=== PATIENT | male | born 1950 | race Caucasian/White ===

== ENCOUNTER 2022-01-30 07:22 | Day surgery (SDC) | payer OTHER ==
[~2022-01-30] VITALS: Ht 172.7 cm; Wt 78.4 kg
[~2022-01-30 07:22] MED LIST: AIRDUO RESPICL1 EAC1; ASPI81CH PO; GLIP10 PO; JARDIANCE10 MG PO; LEVSOD25 PO; LISI20 PO; OMEP20ER PO; PRAV20 PO; Ventolin5 MG/1 ML NEB
[2022-01-30] MEDS ORDERED: LIDO700A20 TOP (08:26)
--- NOTE | 2022-01-30 09:02 | NUR ---
History, Chart, Medications and Allergies reviewed before start of procedure.Lungs clear T/O to Auscultation. Patient confirms NPO status and agrees with scheduled surgery. Pre-Op teaching done. Pt verbalizes understanding. Patient States Post-Procedure ride home has been arranged. AT BEDSIDE
--- NOTE | 2022-01-30 09:05 | NUR ---
1 FAILED ATTEMPT BY CRYSTAL Ellis HAND
--- NOTE | 2022-01-30 11:15 | NUR ---
ARRIVED FROM PACU TO STEP VSS RATES PAIN 2/10.
--- NOTE | 2022-01-30 11:43 | NUR ---
PAIN RX FIRST DOSE WAS GIVEN AND PATIENT WAITING AT THIS TIME FOR SECOND PILL BEFORE DECIDING TO GET DRESSED AND READY FOR DISCHARGE
--- NOTE | 2022-01-30 11:58 | NUR ---
Patient up to Ambulate independently. Gait steady. Discharge instructions reviewed with patient. Patient verbalizes understanding. Copy given to patient to take home. Discharged via wheelchair to private car for ride home.
== END 2022-01-30 23:18 | disposition home or self-care (01) ==
LOC: ORSCMMR 07:22 → ORD 09:00 → ORSCMMR 09:00
PROVIDERS: Surgery
PROC: 0YU60JZ Supplement Left Inguinal Region with Synthetic Substitute, Open Approach (ICD-10-PCS; principal; 2022-01-30 09:00)
DX: K40.90 Unilateral inguinal hernia, without obstruction or gangrene, not specified as recurrent (principal); I10 Essential (primary) hypertension; J44.9 Chronic obstructive pulmonary disease, unspecified; Z87.891 Personal history of nicotine dependence; K21.9 Gastro-esophageal reflux disease without esophagitis; E11.9 Type 2 diabetes mellitus without complications; E78.5 Hyperlipidemia, unspecified; E03.9 Hypothyroidism, unspecified; Z79.899 Other long term (current) drug therapy; Z79.84 Long term (current) use of oral hypoglycemic drugs
CPT/HCPCS: 82947; A9270; C1781; J0690; J1100; J2250; J2370; J2405; J2704; J3010; J7120

== ENCOUNTER 2023-12-31 07:34 | Day surgery (SDC) | payer OTHER ==
[~2023-12-31] VITALS: Ht 172.7 cm; Wt 76.3 kg
[~2023-12-31 07:34] MED LIST changes: -AIRDUO RESPICL1 EAC1; +Balanced Salt Epinephrine Irrigation Solution 500 mL IR SCH; +CALCIUM; +Calcium Acetat667 MG; +EYE SUPPLEMENT; +FLUTICASONE PRO16 GM; +GLUCOSAMINE; -JARDIANCE10 MG PO; +JARDIANCE25 MG PO; +LIDO700A20 TOP; -LISI20 PO; +Lidocaine HCl/Pf 1% 5 ML VIAL XX SCH; +MAGNESIUM; +MULTI-VITAMIN1 EAC2; +Moxifloxacin HCL 0.5 MG/0.1 ML 0.4MLSYR RIGHTEYE SCH; +NS 500 ML IV ONE; +PHENYLEPHRINE\\TROPICAMIDE\\TETRACAINE OPHTHALMIC DILATING SOLN RIGHTEYE PRN; +Povidone-Iodine 450 DROP/30 ML Solution ONE; +Povidone-Iodine 450 DROP/30 ML Solution RIGHTEYE SCH; +Triamcinolone Inj Susp 40 MG / ML 1ML Vial INJ SCH; +VITAMIN C; +ZESTRIL40 M1 PO
[2023-12-31] MEDS ORDERED: Triamcinolone Inj Susp 40 MG / ML 1ML Vial ONE (07:41)
[2023-12-31] MEDS ORDERED: Lidocaine HCl/Pf 1% 5 ML VIAL ONE (07:41)
[2023-12-31] MEDS ORDERED: NS 500 ML IV ONE (07:51)
[2023-12-31] MEDS ORDERED: Tetracaine HCl 0.5% Opth Soln 15 ml XX ONE (09:02)
[2023-12-31] MEDS ORDERED: Midazolam HCl 1MG / ML 2ML Vial ONE (09:02)
[2023-12-31] MEDS ORDERED: FentaNYL Citrate 50 MCG/ML 2 ML Injection ONE (09:02)
[2023-12-31 09:36] VITALS: BP 121/83
== END 2023-12-31 09:57 | disposition home or self-care (01) ==
LOC: ORSCSDS 07:34
PROVIDERS: Ophthalmology
PROC: 08RJ3JZ Replacement of Right Lens with Synthetic Substitute, Percutaneous Approach (ICD-10-PCS; principal; 2023-12-31 09:00)
DX: E11.36 Type 2 diabetes mellitus with diabetic cataract (principal); H25.11 Age-related nuclear cataract, right eye; H52.201 Unspecified astigmatism, right eye; J45.909 Unspecified asthma, uncomplicated; I12.9 Hypertensive chronic kidney disease with stage 1 through stage 4 chronic kidney disease, or unspecified chronic kidney disease; E11.22 Type 2 diabetes mellitus with diabetic chronic kidney disease; N18.9 Chronic kidney disease, unspecified; Z79.899 Other long term (current) drug therapy
CPT/HCPCS: 82947; J2001; J2250; J3010; J3301; J7040; V2632

== ENCOUNTER 2025-10-11 06:06 | Day surgery (SDC) | payer OTHER ==
[~2025-10-11] VITALS: Ht 172.7 cm; Wt 76.2 kg
[~2025-10-11 06:06] MED LIST changes: +ALBU90OI; -Balanced Salt Epinephrine Irrigation Solution 500 mL IR SCH; +LEVE500 PO; -Lidocaine HCl/Pf 1% 5 ML VIAL XX SCH; -Moxifloxacin HCL 0.5 MG/0.1 ML 0.4MLSYR RIGHTEYE SCH; -NS 500 ML IV ONE; -PHENYLEPHRINE\\TROPICAMIDE\\TETRACAINE OPHTHALMIC DILATING SOLN RIGHTEYE PRN; -Povidone-Iodine 450 DROP/30 ML Solution ONE; -Povidone-Iodine 450 DROP/30 ML Solution RIGHTEYE SCH; -Triamcinolone Inj Susp 40 MG / ML 1ML Vial INJ SCH
[2025-10-11] MEDS ORDERED: CeFAZolin Sodium 2,000 MG VIAL ONE (06:25)
[2025-10-11] MEDS ORDERED: LIDO700A20 (06:29)
[2025-10-11] MEDS ORDERED: TAMS.4ER (06:29)
[2025-10-11] MEDS ORDERED: FINA5 (06:30)
[2025-10-11] MEDS ORDERED: TRIA15CR3 (06:32)
[2025-10-11] MEDS ORDERED: Rocuronium Bromide 10 MG/ML 5ML Injection IV ONE (06:48)
[2025-10-11] MEDS ORDERED: FentaNYL Citrate 50 MCG/ML 2 ML Injection ONE (06:52)
[2025-10-11] MEDS ORDERED: Midazolam HCl 1MG / ML 2ML Vial ONE (06:56)
[2025-10-11] MEDS ORDERED: Midazolam HCL 1 MG/ML 5MLVIAL ONE (06:56)
[2025-10-11] MEDS ORDERED: Ropivacaine 0.5% HCL/PF 5 MG/ML 30ML Vial ONE (06:57)
--- NOTE | 2025-10-11 07:39 | NUR ---
10/11/25 0739 Paulette Fong supraclavicular BLOCK DONE ON THE RIGHT SHOULDER IN PREOP. T/O: 0715 START: 721 END: 731 PT TOLERATED WELL.
[2025-10-11] MEDS ORDERED: Sugammadex Sodium 200 MG/2ML SDV (100 MG/ML) ONE (07:56)
[2025-10-11] MEDS ORDERED: Phenylephrine HCl 100 MCG/ML-NS 10MLSYR (1MG/10ML) ONE (08:04)
[2025-10-11] MEDS ORDERED: ePHEDrine Sulfate 50 MG/ML 1ML Injection ONE (08:14)
[2025-10-11 11:23] VITALS: BP 129/82
== END 2025-10-11 11:20 | disposition home or self-care (01) ==
LOC: ORSCSDS 06:06
PROVIDERS: Orthopaedic Surgery
PROC: 0RBJ4ZZ Excision of Right Shoulder Joint, Percutaneous Endoscopic Approach (ICD-10-PCS; principal; 2025-10-11 07:30)
DX: M75.21 Bicipital tendinitis, right shoulder (principal); M75.51 Bursitis of right shoulder; E11.22 Type 2 diabetes mellitus with diabetic chronic kidney disease; I12.9 Hypertensive chronic kidney disease with stage 1 through stage 4 chronic kidney disease, or unspecified chronic kidney disease; N18.9 Chronic kidney disease, unspecified; K21.9 Gastro-esophageal reflux disease without esophagitis; Z87.891 Personal history of nicotine dependence; J45.909 Unspecified asthma, uncomplicated; E03.9 Hypothyroidism, unspecified; F43.10 Post-traumatic stress disorder, unspecified; Z79.899 Other long term (current) drug therapy; Z79.84 Long term (current) use of oral hypoglycemic drugs
CPT/HCPCS: 82947; A9270; J0166; J0690; J2250; J2371; J2704; J2795; J3010; J7120